=== PATIENT | female | born 1985 | race American Indian/Alaskan Native ===

== ENCOUNTER 2018-08-04 10:18 | Outpatient (CLI) | payer MEDICAID | END 2018-08-04 10:19 | disposition home or self-care (01) | LOC: C.PAT 10:18 | DX: N75.0 Cyst of Bartholin's gland (principal) ==

== ENCOUNTER 2018-08-15 07:48 | Day surgery (SDC) | payer MEDICAID ==
[2018-08-04 10:35] VITALS: BMI 43.6
[2018-08-15] MEDS ORDERED: Bupivacaine 0.5%/Epi 1:200,000 (10 ML SOL) ONE (08:31)
[2018-08-15] MEDS ORDERED: Bupivacaine HCl 0.5% PF (10 ml) Inj ONE (08:31)
[2018-08-15] MEDS ORDERED: ceFOXitin IV 1 gm/100 ml in NS 2 GM/200 ML BAG ONE (08:31)
[2018-08-15] MEDS ORDERED: Strong Iodine Topical Sol. 5%-10% ONE (09:06)
[2018-08-15] MEDS ORDERED: Silver Nitrate Topical - Stick ONE (09:06)
[2018-08-15] MEDS ORDERED: Propofol 10 mg/ml Inj (20 ML) ONE (09:09)
[2018-08-15] MEDS ORDERED: Midazolam 2 MG/2 ML VIAL ONE ×2 (09:09→09:45)
[2018-08-15] MEDS ORDERED: Lidocaine 4% (Laryng-O-Jet) Kit MM ONE (09:10)
[2018-08-15] MEDS ORDERED: Albuterol 0.083% Inhal Sol (2.5 mg/3 mL) UD INH PRN (10:02)
[2018-08-15] MEDS ORDERED: HYDROmorphone 0.5 mg/0.5 ml ISec IVP PRN (10:05)
[2018-08-15] MEDS ORDERED: Albuterol 0.083% Inhal Sol (2.5 mg/3 mL) UD ONE (10:07)
[2018-08-15 11:38] VITALS: PULSE 95; RESP 14; TEMP 96.9; O2SAT 99
[2018-08-15 13:18] VITALS: BP 129/67
--- NOTE | 2018-08-15 20:44 | OP ---
PROCEDURE DATE: 08/15/2018 PREOPERATIVE DIAGNOSIS: Left Bartholin's cyst. POSTOPERATIVE DIAGNOSIS: Left Bartholin's cyst. PROCEDURE: Marsupialization of left Bartholin cyst. FINDINGS: Left Bartholin cyst 6 cm in diameter with about 40 mL of old pus within the cyst. SURGEON: Brady Mcgill MD. ANESTHESIA: General. ESTIMATED BLOOD LOSS: Less than 1 mL. DESCRIPTION OF THE PROCEDURE: After the risks, benefits, and alternatives of the planned procedures including, but not limited to infection, hemorrhage, deep vein thrombosis, atelectasis, pneumonia, pulmonary embolism, damage to bladder, damage to ureter, renal insufficiency, renal failure, wound infection, wound dehiscence, incisional hernia, keloid formation, damage to the large and small intestines, damage to the inferior vena cava and aorta requiring extensive repair, anesthesia complications, electrolyte imbalance, possibility of , fluid overload, cerebral edema, air embolism, and other complications that were discussed, but are not listed above, had been explained to the patient and all her questions answered, informed consent was obtained. Risks of cancer was discussed with the patient. An elliptical incision was made over the medial aspect of the cyst to remove an area of the cyst, the status of which appeared slightly necrotic. The cyst cavity was then entered. Light amount of old pus was drained, approximately 40 mL. Cultures were obtained. Surgeon's fingers were used to break loculations within the cavity of the cyst. The margins of the opening were then closed using a running interlocking suture of 2-0 chromic to include the adjacent skin and underlying cavity with good hemostasis. The cavity was then packed using iodoform gauze. The patient was then transferred to the recovery room in a stable condition. Pad and instrument counts were correct x2. There were no complications. Brady Mcgill MD
== END 2018-08-15 13:18 | disposition home or self-care (01) ==
LOC: C.SDS 07:48
PROVIDERS: ATTEND Obstetrics & Gynecology Reproductive Endocrinology
DX: N75.0 Cyst of Bartholin's gland (principal)
CPT/HCPCS: 56440; 87070; 88304; J1170; J2250; J2704; J3010